=== PATIENT | female | born 1975 | race Caucasian/White ===

== ENCOUNTER 2017-07-21 15:41 | Emergency (ER) | payer OTHER ==
[~2017-07-21] VITALS: Ht 170.2 cm; Wt 115.0 kg
[2017-07-21 16:05] VITALS: BP 132/70; PULSE 73; RESP 17; TEMP 98.3; O2SAT 100
--- NOTE | 2017-07-21 16:56 | RADRPT ---
EXAM DATE/TIME: 07/21/2017 16:36 [facility] COMPARISON: No previous studies available for comparison. INDICATIONS : Lateral side left ankle pain. Patient states she rolled her ankle today. MEDICAL HISTORY : None. SURGICAL HISTORY : None. ENCOUNTER: Initial ACUITY: 1 day PAIN SCORE: 5/10 LOCATION: Left ankle. FINDINGS: The examination demonstrates diffuse soft tissue swelling. There is a small well-corticated bone frag ment beneath the lateral malleolus suggesting avulsion injury. The ankle mortise is otherwise intact. No retained foreign bodies evident. CONCLUSION: 1. Small avulsion off the inferior aspect of the lateral malleolus. 2. Diffuse soft tissue swelling. Bobby Page MD on July 21, 2017 at 16:53 Board Certified Radiologist. This report was verified electronically.
[2017-07-21] MEDS ORDERED: IBUP1TAB7 PO (18:28)
[2017-07-21] MEDS ORDERED: NORC5TAB PO (18:28)
--- NOTE | 2017-07-21 18:29 | PD ---
HPI Chief Complaint: Injury Time Seen by Provider: 18:24 Travel History International Travel<30 days: No Contact w/Intl Traveler<30days: No Traveled to known affect area: No History of Present Illness HPI 42-year-old female presents to the emergency department with complaint of left ankle pain and left lateral foot pain after stepping down onto uneven concrete and rolling her left ankle. She fell to the ground. Denies hitting her head or loss of consciousness. Denies neck pain or back pain. Denies paresthesias, loss of sensation to the affected extremity. Has not been able to ambulate on the affected extremity. Rates pain /10. Has taken 800 mg ibuprofen for symptom management. Pain is to the lateral aspect. Worse with movement and palpation. Better at rest. Primary care provider is in [place]. Allergies to penicillin. History of pituitary tumor. Denies other significant past medical history. Has no other medical complaints. No other modifying factors or associated signs and symptoms PFSH Past Medical History ?: Not Social History Tobacco Use: No Allergies-Medications (Allergen,Severity, Reaction): Coded Allergies: Penicillins (Verified Allergy, Intermediate, RASH, 07/21/17) Reported Meds & Prescriptions Reported Meds & Active Scripts Active Reported Synthroid (Levothyroxine Sodium) 112 Mcg Tab 112 Mcg PO DAILY Hydrocortisone 20 Mg Tab 20 Mg PO DAILY Take with food to decrease GI upset Hydrocortisone 10 Mg Tab 10 Mg PO HS Take with food to decrease GI upset Review of Systems Except as stated in HPI: all other systems reviewed are Neg Physical Exam Narrative GENERAL: Well-nourished, well-developed female patient, in no acute distress SKIN: Warm and dry. HEAD: Atraumatic. Normocephalic. EYES: Pupils equal and round. No scleral icterus. No injection or drainage. ENT: Mucosa pink and moist. Airway patent. NECK: Trachea midline. CARDIOVASCULAR: Regular rate. RESPIRATORY: No accessory muscle use. GASTROINTESTINAL: Rounded. MUSCULOSKELETAL: Left ankle with point tenderness to the lateral malleolus zone with palpation; swelling noted to the lateral aspect; without erythema, edema, ecchymosis; no obvious deformity. Left lateral foot with ecchymosis and tenderness on palpation; without erythema; with edema; no obvious deformity. Left lower extremity is supple and nontense with 2+ pedal pulse and sensory intact. No obvious deformities. No clubbing. No cyanosis. NEUROLOGICAL: Awake and alert. Oriented 3. No obvious cranial nerve deficits. Motor grossly within normal limits. Normal speech. PSYCHIATRIC: Appropriate mood and affect; insight and judgment normal. Data Data Last Documented VS Vital Signs Date Time Temp Pulse Resp B/P (MAP) Pulse Ox O2 Delivery O2 Flow Rate FiO2 07/21/17 16:05 98.3 73 17 132/70 (90) 100 Orders Orders Ankle, Complete ([id number]) (07/21/17 ) Splint Or Brace Apply/Monitor (07/21/17 18:29) Crutches (07/21/17 18:29) Foot, Complete ([id number]) (07/21/17 18:38) Acetamin-Hydrocod 325-5 Mg ([place] 5-325 (07/21/17 18:45) Fiberglass Short Leg Splint Ad (07/21/17 ) Fiberglass [place] Sp Ad Sl (07/21/17 ) Ed Discharge Order (07/21/17 19:40) [facility] Medical Decision Making Medical Screen Exam Complete: Yes Emergency Medical Condition: Yes Medical Record Reviewed: Yes Differential Diagnosis Fracture, sprain, injury Narrative Course 42-year-old female with left ankle and foot injury. Left ankle x-ray ordered in triage and conclude: small avulsion off the inferior aspect of the lateral malleolus; diffuse soft tissue swelling. On exam patient is complaining of left lateral foot pain and she has ecchymosis and edema to the left lateral foot at the fifth metatarsal region. Dominique splint, crutches, left foot x-ray, [place] ordered. 0: Left foot and ankle x-rays conclude: Foot X-Ray 07/21/17 1838 Signed Impressions: Service Date/Time: Friday, July 21, 2017 19:02 - CONCLUSION: Fracture base of the fifth metatarsal in anatomic alignment in fiberglass. Juan Page MD FACR Ankle X-Ray 07/21/17 0000 Signed Impressions: Service Date/Time: Friday, July 21, 2017 16:36 - CONCLUSION: 1. Small avulsion off the inferior aspect of the lateral malleolus. 2. Diffuse soft tissue swelling. Bobby Page MD Patient provided copy of the x-ray reports. Dominique splint in place. Crutches provided for support. Instructed patient to follow-up with orthopedics. Instructed patient to follow up with primary care provider. Patient verbalizes understanding and agreement with treatment plan. Patient is medically cleared and stable for discharge. Discussed reasons to return to the emergency department. Patient agrees with treatment plan. The patients vital signs are stable and the patient is stable for outpatient follow-up and treatment. Patient discharged home, stable and in no acute distress. Diagnosis Primary Impression: Closed left ankle fracture Qualified Codes: S82.892A - Other fracture of left lower leg, initial encounter for closed fracture Additional Impression: Nondisplaced fracture of fifth left metatarsal bone Qualified Codes: S92.355A - Nondisplaced fracture of fifth metatarsal bone, left foot, initial encounter for closed fracture Referrals: Orthopaedic Surgeon Primary Care Physician Patient Instructions: Ankle Fracture (ED), Crutch Instructions (ED), General Instructions, Splint Care (ED) Departure Forms: Tests/Procedures, Work Release Special Instructions: No work until cleared by orthopedic Additional Instructions: Tylenol or ibuprofen as directed and as needed for pain and inflammation Rest, ice, compress, and elevate extremity to decrease pain and inflammation Splint for support; do not remove splint until cleared Crutches for support; do not bear weight until the orthopedic doctor gives you permission Avoid aggravating activity; increase activity as tolerated Follow-up with primary care provider Follow-up with orthopedics Return to the emergency department immediately with worsening of symptoms Med/Other Pt SpecificInfo: Prescription(s) given Disposition: 01 DISCHARGE HOME Condition: Stable Hina Thomas Jul 21, 2017 18:29
[2017-07-21] MEDS ORDERED: HYDR20TA PO (18:38)
[2017-07-21] MEDS ORDERED: HYDR10TA65 PO (18:38)
[2017-07-21] MEDS ORDERED: SYNT112T PO (18:38)
[2017-07-21] MEDS ORDERED: ACETAMINOPHEN/HYDROcodone 325 MG/5 MG TAB PO ONE (18:45)
--- NOTE | 2017-07-21 19:31 | RADRPT ---
EXAM DATE/TIME: 07/21/2017 19:02 [facility] COMPARISON: ANKLE LEFT COMPLETE ([id number]), July 21, 2017, 16:36. INDICATIONS : Left foot pain post fall today MEDICAL HISTORY : None. SURGICAL HISTORY : None. ENCOUNTER: Initial ACUITY: 1 day PAIN SCORE: 6/10 LOCATION: Left lateral foot FINDINGS: Fracture base of the fifth metatarsal in anatomic alignment in plaster. No other fractures are appre ciated. CONCLUSION: Fracture base of the fifth metatarsal in anatomic alignment in fiberglass. Juan Page MD FACR on July 21, 2017 at 19:28 Board Certified Radiologist. This report was verified electronically.
== END 2017-07-21 19:40 | disposition home or self-care (01) ==
LOC: NEPK 15:41
DX: S82.892A Other fracture of left lower leg, initial encounter for closed fracture (principal); S92.355A Nondisplaced fracture of fifth metatarsal bone, left foot, initial encounter for closed fracture; W19.XXXA Unspecified fall, initial encounter
CPT/HCPCS: 29515; 73610; 73630; 99283; E0113; 29125